=== PATIENT | male | born 1965 | race Caucasian/White ===

== ENCOUNTER 2016-10-30 09:45 | Emergency (ER) | payer BC, MEDICAID ==
[2016-10-30] MEDS ORDERED: ASPIRIN 81 MG TAB.CHEW PO ONE (10:14)
[2016-10-30] MEDS ORDERED: KETOROLAC TROMETHAMINE 60 MG/2 ML VIAL IM ONE ×2 (10:15→10:30)
--- NOTE | 2016-10-30 10:29 | ERNOTE ---
Abdominal HPI - Narrative Date of Service: 10/30/16 - General Chief Complaint: Abdominal Pain Time Seen by Provider: 10/30/16 10:08 Source: patient Exam Limitations: no limitations - Immun/Allergies/Home Medications Immunizatons: IMMUNIZATION HX Immunizations Up to Date Yes History of Influenza Vaccine No Hx Pneumococcal Vaccination No Allergies/Adverse Reactions: Allergies No Known Allergies Allergy (Verified 10/30/16 10:11) Home Medications: HOME MEDICATIONS Amlodipine Besylate [Norvasc] 5 mg PO DAILY 05/12/13 [Last Taken Unknown] Captopril 25 mg PO DAILY 05/12/13 [Last Taken Unknown] oxyCODONE HCL/ACETAMINOPHEN [Percocet 5 MG/325 MG] 1 tab PO Q4H PRN #10 tablet 07/20/15 [Last Taken Unknown] - History of Present Illness Narrative: Pt. comes in with c/o cough, chest pain, upper abdominal pain and low back pain for a week. Pt. was seen by his PCP and diagnosed with bronchitis and started on prednisone and augmentin without relief of symptoms. Pt. states that the pain worsens with movement and palpations but is not relieved by anything. Pt. states tath he has some mild SOB but he tried an albuterol inhaler for that without relief. Pt. recently had surgery to remove a melanoma on his back. Pt. denies any dysuria, fever, chills or malaise. Review of Systems - Review of Systems Constitutional: Present: no symptoms reported. Absent: recent illness, fever, chills, weakness, fatigue, malaise EYE: Present: no symptoms reported ENT: Present: no symptoms reported Respiratory: Present: shortness of breath, cough. Absent: wheezing Cardiology: Present: chest pain. Absent: palpitations, syncope, edema Gastrointestinal/Abdominal: Present: abdominal pain. Absent: nausea, vomiting, diarrhea Genitourinary: Present: pain - R flank. Absent: decreased urinary output Musculoskeletal: Present: back pain - R flank and R lower Skin: Absent: rash Neurological: Present: no symptoms reported. Absent: headache, dizziness/light- headedness, numbness, tingling All Other Systems: All systems neg except as marked - Patient's Past Medical History Patient History - Medical: No pertinent hx Patient History - Cardiac/Respiratory: Hypertension Patient History - Cancer: Melanoma Patient History - Surgical Procedures: Cancer Surgery, Orthopedic Patient History - Other: None - Social History Living Situations: home Abuse History: No History of abuse Psych History: No pertinent hx Smoking Status: Never smoker Alcohol Use: none Drug Use: none - Immunizations Immunizations Up to Date: Yes Hx Pneumococcal Vaccination: No History of Influenza Vaccine: No Physical Exam - Physical Exam General Appearance: Present: wd/wn, alert, no apparent distress Head Exam: Present: normal inspection, no evidence of injury Eye Exam: Normal inspection: bilateral, PERRL: bilateral, EOMI: bilateral Ears, Nose, Throat: Present: normal ENT inspection, normal pharynx Neck: Present: normal inspection, nontender. Absent: lymphadenopathy (R), lymphadenopathy (L) Respiratory: Present: no respiratory distress, no accessory muscle use, decreased breath sounds - R lower lobe absent, other - R intercostal rib tenderness anterior and post. 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 Absent: skin rash ED Progress - Date and Time Seen: Date and Time: 10/30/[address] Gilmore and he feels that this pt. is too complicated for treatment here as he likely needs treatment by hemoc, pulmonology, and liver specialist GI. 10/30/16 13:[address] Segura and he feels that pt. needs emergent transfer for evaluation of pleural fluid and necrotic lung tisue. Discussed with pt. and he agrees with POC. - Results and Orders Patient's Lab Results:: I have reviewed the patient's lab results. - Vital Signs Patient's Vital Signs:: I have reviewed the patient's vital signs. Vital Signs: Vital Signs 10/30/16 10:04 Temperature 36.9 C Pulse Rate 90 Respiratory 16 Rate Blood Pressure 133/102 O2 Sat by Pulse 96 Oximetry - X-Ray X-Ray #1 X-Ray: chest Interpretation: Interp. by me X-ray Comments: Large R sided pleural effusion. X-Ray #2 X-Ray: abdomen Interpretation: Reviewed by me X-ray Comments: moderate stool retention no obstruction. - CT/Ultrasound CT/Ultrasound Narrative: CT abd Findings: There is a large right-sided pleural effusion. There is complete compressive atelectasis of the right lower lobe. There is apparent necrosis and collapse of the right middle lobe. There is aerated right upper lobe, however the right upper lobe bronchus is completely obstructed by soft tissue material. Unclear whether this represents endobronchial tumor or or right hilar adenopathy invading the right upper lobe bronchus. The large right pleural effusion is slightly heterogeneous with some pleural nodular thickening. Unclear whether this represent pleural implants or whether this represents empyema. There is no enhancing split pleural sign which would confirm empyema. The left lung is otherwise clear. Multiple low-density lesions scattered throughout the liver. These are not simple cysts. Unclear whether these represent complex cysts and/or infectious process or whether this represents metastatic disease to the liver. No obvious filling defects in the pulmonary arteries. Degenerative change of the spine and shoulders. IMPRESSION: 1. LARGE RIGHT PLEURAL EFFUSION WHICH IS MILDLY COMPLEX AND COULD REPRESENT EMPYEMA HOWEVER NO ENHANCING SPLIT PLEURAL SIGN IS IDENTIFIED TO CONFIRM EMPYEMA. 2. THERE IS COMPLETE COLLAPSE AND APPARENT NECROSIS OF THE RIGHT MIDDLE LOBE. UNCLEAR WHETHER THIS REPRESENTS TUMOR OR INFECTION . 3. ADDITIONAL SOFT TISSUE MASS FILLING THE RIGHT UPPER LOBE BRONCHUS. IT IS UNCLEAR WHETHER THIS REPRESENTS AN ENDOBRONCHIAL TUMOR OR RIGHT-SIDED HILAR LYMPHADENOPATHY COMPRESSING OR INVADING THE RIGHT UPPER LOBE BRONCHUS. THERE IS HOWEVER SOME AERATED RIGHT UPPER LOBE REMAINING. 4. EXTENSIVE HEPATIC MASSES WHICH ARE NOT CONSISTENT WITH SIMPLE CYST. UNCLEAR WHETHER THIS REPRESENTS INFECTION OR METASTATIC DISEASE. 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
[2016-10-30 10:30] LABS: Hematocrit 44.3 % (42.0-52.0); Hemoglobin 15.1 gm/dL (13.5-18.0); Mean Cell Volume 85.7 fl (78-100); Mean Corpuscular Hemoglobin 29.2 pg (27-31); Mean Corpuscular Hgb Conc 34.1 g/dl (32-36); Mean Platelet Volume 8.5 fl (6.0-9.5); Neutrophil # 15.6 K/mm3 (1.3-6.0); Neutrophil % 81.5 % (42-75.0); Platelet Count 399 K/mm3 (150-450); Red Blood Count 5.17 M/mm3 (4.7-6.0); Red Cell Distribution Width 12.4 % (11.5-14.0); White Blood Count 19.1 K/mm3 (4.0-10.5)
[2016-10-30] MEDS ORDERED: ASPIRIN 81 MG TAB.CHEW ONE (10:30)
[2016-10-30 10:41] LABS: Prothrombin Time (Patient) 10.7 Seconds (9.4-11.4)
[2016-10-30 10:45] LABS: INR 1.03 INR (0.90-1.10)
[2016-10-30 10:47] LABS: ALT 57 U/L (19-67); AST 45 U/L (0-48); Albumin * 2.6 gm/dl (3.4-5.0); Alkaline Phosphatase * 133 U/L (50-170); Amylase * 42 U/L (25-115); Anion Gap 15.8 mmol/L (6.8-13.8); BUN/Creatinine Ratio 16.7 (9.0-21.6); Bilirubin, Total 0.5 mg/dL (0.0-1.1); Blood Urea Nitrogen 14 mg/dL (6-23); Ca. Corrected For Albumin 9.2 mg/dL (8.4-10.2); Calcium * 8.4 mg/dL (7.9-10.9); Carbon Dioxide 25.5 mmol/L (24-32.6); Chloride 100 mmol/L (97-106); Glucose * 98 mg/dL (70-110); Lipase 136 U/L (73-393); Potassium 4.3 mmol/L (3.4-4.6); Sodium 137 mmol/L (132-142); Total Protein 6.3 gm/dL (6.2-8.2); Troponin I Less than 0.017 ng/ml (0.00-0.10)
[2016-10-30 11:13] LABS: Urine Bilirubin 1 mg/dl (NEGATIVE); Urine Blood Negative /ul (NEGATIVE); Urine Ketone Negative (NEGATIVE); Urine Nitrite Negative (NEGATIVE); Urine Protein Negative (NEGATIVE); Urine Urobilinogen Normal (NORMAL)
[2016-10-30 11:27] LABS: Urine Appearance Clear; Urine Bacteria TRACE; Urine Color Pale Yellow; Urine RBC None Seen /hpf (0-5); Urine WBC None Seen /hpf (0-5)
[2016-10-30] MEDS: NORMAL SALINE 1,000 ML IV PRN ×2 (11:43→13:21)
[2016-10-30 13:17] VITALS: BP 124/84
== END 2016-10-30 14:38 | disposition short-term general hospital (02) ==
LOC: ER 09:45
DX: C7B.02 Secondary carcinoid tumors of liver (principal); J90 Pleural effusion, not elsewhere classified; J85.0 Gangrene and necrosis of lung; Z85.820 Personal history of malignant melanoma of skin